=== PATIENT | female | born 1930 | race Caucasian/White ===

== ENCOUNTER 2018-03-13 09:15 | Inpatient (IN) ==
[2018-03-09 15:33] LABS: Appearance,Urine CLOUDY; Bacteria,Urine FEW /hpf (0); Bilirubin,Urine NEG (NEG); Color,Urine YELLOW; Glucose,Urine (UA) NEGATIVE (NEG); Leukocyte Esterase,Urine 500 /uL (NEG); Mucus,Urine FEW /hpf (0); Protein,Urine NEG (NEG); Specific Gravity,Urine 1.021 (1.000-1.035); Urine Blood 0.03 mg/dL (<0.03); Urine Hyaline Cast 8 /lpf (0-2); Urine RBC 6 /hpf (0-1); Urine Squamous Epithelial Cell 2 /hpf (0-4); Urine Transitional Epi Cells 3 /hpf (0-2); Urine WBC > 182 /hpf (0-4); Urobilinogen,Urine NEG (NEG)
[2018-03-09 17:12] LABS: Basophils # (Auto) 0 K/mcL (0.0-0.3); Basophils % (Auto) 0.2 % (0.0-2.0); Eosinophils # (Auto) 0.2 K/mcL (0.0-0.7); Eosinophils % (Auto) 1.7 % (0.0-7.0); Granulocytes % (Auto) 77.6 % (38.0-78.0); Lymphocytes # (Auto) 1.6 K/mcL (1.5-4.8); Lymphocytes % (Auto) 16.3 % (15.5-49.0); Mean Cell Volume 90.2 fL (80.0-100.0); Mean Corpuscular HGB Conc 33.3 g/dL (31.0-36.0); Monocytes # (Auto) 0.4 K/mcL (0.1-0.9); Monocytes % (Auto) 4.2 % (1.0-12.0); Platelet Count 277 K/mcL (140-440)
[2018-03-09 17:14] LABS: Blood Urea Nitrogen 17 mg/dl (8-23)
[~2018-03-13 09:15] MED LIST: 0.9 % SODIUM CHLORIDE 9 ML, KETOROLAC 30 MG, ROPIVACAINE HCL/PF 49.5 ML, EPINEPHrine 0.... IJ SCH; ACETAMINOPHEN 500 MG TABLET PO SCH; CELECOXIB 200 MG CAPSULE PO SCH; PREGABALIN 75 MG CAPSULE PO SCH; ceFAZolin 1 GM VIAL IV SCH; oxyCODONE 10 MG TAB.ER.12H PO SCH
[2018-03-13] MEDS ORDERED: SODIUM CHLORIDE 0.9% IV SCH (14:00)
[2018-03-13] MEDS ORDERED: GENTAMICIN SULFATE IV SCH (14:00)
[2018-03-13] MEDS ORDERED: ONDANSETRON 4 MG/2 ML VIAL IV ONE (15:05)
[2018-03-13] MEDS ORDERED: LIDOCAINE HCL/PF 100 MG/5 ML SYRINGE IV ONE (15:05)
[2018-03-13] MEDS ORDERED: MIDAZOLAM 2 MG/2 ML VIAL IV ONE (15:05)
[2018-03-13] MEDS ORDERED: ROPIVACAINE HCL/PF 20 ML VIAL IJ ONE (15:05)
[2018-03-13] MEDS ORDERED: TRANEXAMIC ACID 1,000 MG/10 ML VIAL IV ONE ×2 (15:05→16:40)
[2018-03-13] MEDS ORDERED: GLYCOPYRROLATE 0.2 MG/ML VIAL IV ONE (15:05)
[2018-03-13] MEDS ORDERED: hydrALAZINE 20 MG/ML VIAL IV ONE (15:05)
[2018-03-13] MEDS ORDERED: PROPOFOL 200 MG/20 ML VIAL IV ONE (15:05)
[2018-03-13] MEDS ORDERED: DEXAMETHASONE 10 MG/ML VIAL IV ONE (15:05)
[2018-03-13] MEDS ORDERED: fentaNYL 100 MCG/2 ML VIAL IV ONE (15:05)
[2018-03-13] MEDS ORDERED: ONDANSETRON 4 MG/2 ML VIAL IV PRN ×2 (16:19→16:40)
[2018-03-13] MEDS ORDERED: PROMETHAZINE 25 MG/ML VIAL IV PRN (16:19)
[2018-03-13] MEDS ORDERED: MEPERIDINE 25 MG/ML SYRINGE IV PRN (16:19)
[2018-03-13] MEDS ORDERED: FLUMAZENIL 0.1 MG/ML ML IV PRN (16:19)
[2018-03-13] MEDS ORDERED: fentaNYL 100 MCG/2 ML VIAL IV PRN (16:19)
[2018-03-13] MEDS ORDERED: LACTATED RINGERS 250 ML IV PRN (16:19)
[2018-03-13] MEDS ORDERED: NALOXONE HCL 0.4 MG/ML VIAL IV PRN (16:19)
[2018-03-13] MEDS ORDERED: diphenhydrAMINE 50 MG/ML VIAL IV PRN (16:19)
[2018-03-13] MEDS ORDERED: IPRATROPIUM/ALBUTEROL 3 ML AMPUL.NEB NEB PRN (16:19)
[2018-03-13] MEDS ORDERED: GENTAMICIN SULFATE 800 MG/20 ML VIAL IR ONE (16:30)
[2018-03-13] MEDS ORDERED: LACTATED RINGERS 1,000 ML IV SCH (16:30)
[2018-03-13] MEDS ORDERED: BENZOCAINE/MENTHOL 1 LOZENGE PO PRN (16:40)
[2018-03-13] MEDS ORDERED: TEMAZEPAM 15 MG CAPSULE PO PRN (16:40)
[2018-03-13] MEDS ORDERED: oxyCODONE/APAP 5/325MG TABLET PO PRN (16:40)
[2018-03-13] MEDS ORDERED: MAGNESIUM HYDROXIDE 30 ML ORAL.SUSP PO PRN (16:40)
[2018-03-13] MEDS ORDERED: ACETAMINOPHEN 325 MG TABLET PO PRN (16:40)
[2018-03-13] MEDS ORDERED: POLYETHYLENE GLYCOL 3350 17 GM PACKET PO PRN (16:40)
[2018-03-13] MEDS ORDERED: BISACODYL 10 MG SUPP.RECT PR PRN (16:40)
[2018-03-13] MEDS ORDERED: HYDROmorphone 2 MG/ML VIAL IV PRN (16:40)
[2018-03-13] MEDS ORDERED: FLEETS ADULT ENEMA PR PRN (16:40)
[2018-03-13] MEDS ORDERED: BUMETANIDE 1 MG TABLET PO PRN (16:42)
[2018-03-13] MEDS ORDERED: morphine 15 MG TABLET PO PRN (16:42)
--- NOTE | 2018-03-13 17:38 | XRay Report ---
CLINICAL INFORMATION: Postsurgical follow-up TECHNIQUE: Portable AP and crosstable lateral right knee COMPARISON: None. FINDINGS: Status post right total knee arthroplasty. Anatomic alignment demonstrated. There is postsurgical soft tissue and intra-articular gas IMPRESSION: Status post right total knee arthroplasty Interpreted and Authenticated by: Tavon Zhong 03/13/18
[2018-03-13] MEDS: 0.45 % SODIUM CHLORIDE 1,000 ML IV SCH (17:54)
[2018-03-13] MEDS: KETOROLAC 15 MG/ML VIAL IV SCH (17:54)
--- NOTE | 2018-03-13 18:23 | Brief Operative Note ---
Date of procedure: 03/13/18 Pre-op diagnosis: left knee djd severe Post-op diagnosis: same Procedure: left tka with markell robot Grafts/Implants: Yes Anesthesia: GETA Complications: none Surgeon: Jatin Bingham Fire Alarm Operator: Dm Kendall Estimated blood loss (cc): 50 Tourniquet Time (Minutes): 55 Specimens Removed/Pathology: none sent Condition: stable Disposition: PACU
--- NOTE | 2018-03-13 18:26 | Discharge Summary ---
Ortho Discharge - TKA - Patient Instructions Diet: Regular Diet Activity: activity as tolerated, weight bearing as tolerated Total Knee Protocol: For Total Knee: Start ROM MARIA C with stationary bike or rocking chair. Work on gaining full extension of knee. Posterior dislocation precautions provided. Hip abductor strengthening and gait training instructions provided. Apply Cryocuff as instructed. Dressing Care: May shower in 2 days - Follow Up Plan Follow Up Appointments: Dm Kendall PA-C [Physician Safety And Security Officer] - 03/27/18 2:30 pm Disposition: Home, Self-Care Prognosis: Good Rehab Potential: Good I certify that the patient requires SNF services: No Overall status at discharge: patient is progressing back to baseline - Orders For Discharge Prescriptions: Aspirin [Ecotrin] 325 mg PO BID #60 tab.ec Docusate Sodium [Colace] 100 mg PO BID #60 cap oxyCODONE/APAP [Percocet 5-325 mg] 1 - 2 tab PO Q4HP PRN #75 tab PRN Reason: Pain Level 3-6
[2018-03-13] MEDS ORDERED: SENNOSIDES 1 TABLET PO SCH (21:00)
[2018-03-13] MEDS: DOCUSATE SODIUM 100 MG CAPSULE PO SCH (21:42)
[2018-03-13] MEDS: ceFAZolin 1 GM VIAL IV SCH (21:42)
[2018-03-13] MEDS: ASPIRIN 325 MG ENTERIC COATED TABLET PO SCH (21:42)
[2018-03-14] MEDS: KETOROLAC 15 MG/ML VIAL IV SCH ×3 (00:24→12:04)
[2018-03-14] MEDS: 0.9 % SODIUM CHLORIDE 10 ML SYRINGE IV SCH ×2 (00:26→05:59)
[2018-03-14] MEDS ORDERED: HYDROcodone/APAP 10/325MG TABLET PO PRN (01:57)
[2018-03-14] MEDS: 0.45 % SODIUM CHLORIDE 1,000 ML IV SCH (05:02)
[2018-03-14] MEDS: ceFAZolin 1 GM VIAL IV SCH (05:59)
--- NOTE | 2018-03-14 07:36 | Orthopedic Progress Note ---
Subjective Patient information: Note initiated : 03/14/18 at 7:35 am Service Date, if different from initiated Date: [] Patient: Radha Lutz 87 y/o F admitted on 03/13/18 for Right Robotic Total Knee Arthorplasty. Chief Complaint: [Pt is stable this morning on post operative day 1 without any significant concerns or complaints. Patients vital signs have remained stable. Patients dressing is dry and is grossly intact from a neurovascular and motor standpoint. Patients 10 point ROS is otherwise negative. ] Objective Vital signs: Vital Signs Temp Pulse Resp BP Pulse Ox 03/14/18 04:00 97.6 F 68 14 126/64 91 03/14/18 02:31 94 03/14/18 00:37 98.4 F 68 16 150/74 94 03/13/18 21:10 94 03/13/18 20:50 97.7 F 65 12 98/55 89 L 03/13/18 20:00 93 03/13/18 19:50 84 127/82 95 03/13/18 19:19 75 103/56 88 L 03/13/18 18:50 89 119/65 87 L 03/13/18 18:34 90 119/62 96 03/13/18 18:19 81 132/67 92 03/13/18 18:05 93 H 124/70 94 03/13/18 17:50 93 H 142/64 94 03/13/18 17:30 97.3 F 89 13 137/110 98 03/13/18 17:15 97.4 F 90 18 138/60 100 03/13/18 17:10 87 14 161/82 100 03/13/18 17:05 84 15 144/55 100 03/13/18 17:00 97.2 F 91 H 13 140/65 100 03/13/18 09:40 96 F L 18 174/83 97 Intake and Output 03/13/18 03/14/18 03/14/18 21:59 05:59 13:59 Intake Total 1040 / 1040 1750 / 1750 Output Total 50 / 50 300 / 300 Balance 990 / 990 1450 / 1450 Intake: IV 600 / 600 1000 / 1000 Sodium Chloride 0.45% 1,000 ml 1000 / 1000 @ 100 mls/hr IV .Q10H [facility] Rx#: [id number] Lactated Ringers 1,000 ml @ 20 600 / 600 mls/hr IV .Q24H [facility] Rx#: [id number] Oral 440 / 440 750 / 750 Output: Void Amount 300 / 300 Estimated Blood Loss 50 / 50 Other: Meal Nourishment/Supplement Nourishment/Supplement Percent of Meal Consumed 100% 100% Feeding Ability Independent Independent Urine Color Bright Yellow Urine Odor Normal # Voids 1 Weight 240 lb Intake & Output: Intake & Output 03/13/18 03/14/18 03/14/18 21:59 05:59 13:59 Intake Total 1040 / 1040 1750 / 1750 Output Total 50 / 50 300 / 300 Balance 990 / 990 1450 / 1450 Weight 240 lb Intake: IV 600 / 600 1000 / 1000 Sodium Chloride 0.45% 1,000 ml 1000 / 1000 @ 100 mls/hr IV .Q10H [facility] Rx#: [id number] Lactated Ringers 1,000 ml @ 20 600 / 600 mls/hr IV .Q24H [facility] Rx#: [id number] Oral 440 / 440 750 / 750 Output: Void Amount 300 / 300 Estimated Blood Loss 50 / 50 Other: Meal Nourishment/Supplement Nourishment/Supplement Percent of Meal Consumed 100% 100% Feeding Ability Independent Independent Urine Color Bright Yellow Urine Odor Normal # Voids 1 Incision: Yes healing Incision clean and dry: Yes Dressing: Yes clean Weight bearing status: full Neurological exam IM: Yes motor sensory intact, Yes neurovascular intact Extremities exam IM: Yes Foot pink and warm, Yes neurovascular intact - Labs CBC & BMP: 03/14/18 05:46 03/09/18 14:07 Labs: Orthopedic Labs 03/09/18 14:07 PT 13.4 INR 1.0 APTT 34 03/14/18 03/09/18 05:46 14:07 Hgb 13.5 Hct 35.7 L 40.6 Assessment and Plan (1) Hx of total knee arthroplasty The patient has been educated regarding dressing care, Physical Therapy recommendations, home exercises, restrictions, and follow up appointments. The patient has had all necessary DME prescribed. The patient has remained relatively stable during their hospital course. Leave Dermabond patch intact until followup Status: Acute
--- NOTE | 2018-03-14 07:59 | Operative Note ---
DATE OF OPERATION: 03/13/2018 PREOPERATIVE DIAGNOSIS: Right knee degenerative arthritis, severe. POSTOPERATIVE DIAGNOSIS: Right knee degenerative arthritis, severe. PROCEDURE: Robotic right total knee arthroplasty with cemented components from [employer]. SURGEON: Jatin Bingham MD DEICER REPAIRER: Dm Kendall PA-C ANESTHESIA: General LMA anesthesia. COMPLICATIONS: None. DESCRIPTION OF PROCEDURE: The patient was brought to the operating room and put to sleep with general LMA anesthesia. Once asleep, the patient had the right leg sterilely prepped and draped in the usual sterile fashion. Once sterilely prepped and draped, we confirmed the operative site. Ioban was placed over the skin. A midline incision was made. A mid vastus approach was performed. Pins above and below the knee were placed, center of hip rotations, medial and lateral malleolus, intra-articular pins were placed. We registered 30 points on the femur and the tibia. Once this was done, we then balanced the knee at 90 and 15 degrees. We then used the implant, brought the implant and then this was positioned. The robot was registered and then we made our bony cuts on the tibia and the femur. Bony fragments were removed. We set rotation with the robot and then trialed the components on the femur. The 11 mm poly was the most conforming and fit very nicely. Full extension achieved. We irrigated thoroughly and prepared the patella. It measured 26 mm in total thickness, cut to 16 mm and then cemented into place a 36 mm patellar button. Lateral chamfer was made. We irrigated thoroughly and then trialed the knee. We then felt this was very stable. There was excellent tracking of the patella. We irrigated thoroughly and then punched into placed the components. We cemented the components. We used pulse lavage and CarboJet to prepare the bony surfaces. The cement was applied to the bone and the implant and these were tapped into place. Excess of bone and cement was removed. We then placed an 11 mm poly. The knee was kept in extension while we prepared the patella. A 36 mm patellar button was cemented into place and we kept the knee at 45 degrees until all components were dry. This tourniquet was deflated. We irrigated thoroughly. We then closed the mid vastus approach with #1 Stratafix stitches x3. We closed the skin with Stratafix and adhesive closure. The portals were closed with 4-0 nylon. The intraarticular pins were removed and accounted for and all external pins were removed. The patient tolerated this well. There were no complications. The alignment was 9 degree flexion contracture with approximately 45 degrees of varus malalignment. We achieved 0 degrees extension and approximately 1 degree of varus. The patient tolerated this well without complication. RBH:thom Job ID: [id number] Doc ID: [id number] Jatin Bingham MD
[2018-03-14] MEDS: DOCUSATE SODIUM 100 MG CAPSULE PO SCH (08:31)
[2018-03-14] MEDS: ASPIRIN 325 MG ENTERIC COATED TABLET PO SCH (08:31)
--- NOTE | 2018-03-14 08:48 | Operative Note ---
DATE OF OPERATION: 03/13/2018 PREOPERATIVE DIAGNOSIS: Right knee degenerative arthritis. POSTOPERATIVE DIAGNOSIS: Right knee degenerative arthritis. PROCEDURE: Right total knee arthroplasty with the Jacky robot. SURGEON: Jatin Bingham M.D. SUGAR REFINER: Dm Kednall PA-C. ANESTHESIA: General anesthesia. COMPLICATIONS: None. TOTAL TOURNIQUET TIME: Approximately 55 minutes. DESCRIPTION OF PROCEDURE: The patient had the right knee sterilely prepped and draped in the usual sterile fashion. Once this was confirmed as the operative site, we inflated the tourniquet to 250 pounds of pressure and placed a midline incision on the right knee. This was confirmed both by x-ray, consent form and initials. Once done, we then made a midline incision, midvastus approach performed, and then we placed arrays in the skin above and below the knee for the robot. The right knee had the center of hip rotation confirmed, and the medial and lateral malleoli. Two intraarticular pins were placed, one on the femur, one on the tibia. Thirty points on the femur and tibia were registered. We then balanced the knee at 90 degrees and 15 degrees. We adjusted the implants to assist with the balancing of the knee. Once this was done, we brought in the Jacky robot. The bony cuts were made. We then trialed the components, which we had templated prior. They fit very nicely with a standard thickness poly. We prepared the patella, covering this with a 36 mm patellar button. The patella tracked well. It seemed to fit very nicely throughout the range of motion. We irrigated thoroughly and then cemented into place the tibial baseplate and the femoral component, removing excess cement, with a standard poly. Once this was done, we then placed the knee in extension and prepared the patella. This had a 36 mm patellar button cemented into place. Once the cement was hard, we took the knee through the range of motion to confirm tracking and position. This seemed to fit very nicely. We closed the midvastus approach on the right knee with Stratafix x3 sutures. We irrigated thoroughly and closed the skin with Stratafix and 2-0 Vicryl. Adhesive closure for the skin was used and 4-0 nylon for the portals. The intraarticular pins were removed, as well as the array pins. Once all accounted for we irrigated and placed a sterile bandage. The patient tolerated this well without complication. CLINT:[email or web address] Job ID: [id number] Doc ID: [id number] Jatin Bingham MD
[2018-03-14] MEDS ORDERED: MAGNESIUM OXIDE 400 MG TABLET PO SCH (09:00)
[2018-03-14] MEDS ORDERED: CALCIUM W/VIT D3 500 MG TABLET PO SCH (09:00)
[2018-03-14] MEDS ORDERED: ASPIRIN 325 MG TABLET.DR PO SCH (09:00)
[2018-03-14] MEDS ORDERED: VITAMIN D3 1,000 UNIT TABLET PO SCH (09:00)
== END 2018-03-14 12:42 | disposition home or self-care (01) | DRG 470 ==
LOC: MEDSUR 09:15
PROVIDERS: ADMIT Orthopaedic Surgery; ATTEND Orthopaedic Surgery
CPT/HCPCS: 62322; 97161; C1713; C1776; J0360; J0690; J1100; J1580; J1885; J2001; J2250; J2405; J2795; J3010; J7050; J7120

== ENCOUNTER 2018-05-22 06:54 | Inpatient (IN) ==
[2018-05-16 12:43] LABS: Basophils # (Auto) 0 K/mcL (0.0-0.3); Basophils % (Auto) 0.4 % (0.0-2.0); Eosinophils # (Auto) 0.2 K/mcL (0.0-0.7); Eosinophils % (Auto) 3.8 % (0.0-7.0); Granulocytes % (Auto) 72.7 % (38.0-78.0); Lymphocytes # (Auto) 1.1 K/mcL (1.5-4.8); Lymphocytes % (Auto) 17.9 % (15.5-49.0); Mean Cell Volume 87.7 fL (80.0-100.0); Mean Corpuscular HGB Conc 32.1 g/dL (31.0-36.0); Monocytes # (Auto) 0.3 K/mcL (0.1-0.9); Monocytes % (Auto) 5.2 % (1.0-12.0); Platelet Count 226 K/mcL (140-440); RBC 4.24 M/mcL (4.00-5.20); Red Cell Distribution Width 15.8 % (11.5-14.5)
[2018-05-16 14:22] LABS: Blood Urea Nitrogen 16 mg/dl (8-23)
[2018-05-22] MEDS ORDERED: PREGABALIN 75 MG CAPSULE PO SCH (07:00)
[2018-05-22] MEDS ORDERED: ceFAZolin 1 GM VIAL IV SCH (07:00)
[2018-05-22] MEDS ORDERED: CELECOXIB 200 MG CAPSULE PO SCH (07:00)
[2018-05-22] MEDS ORDERED: 0.9 % SODIUM CHLORIDE 9 ML, KETOROLAC 30 MG, ROPIVACAINE HCL/PF 49.5 ML, EPINEPHrine 0.... IJ SCH (07:00)
[2018-05-22] MEDS ORDERED: ACETAMINOPHEN 500 MG TABLET PO SCH (07:00)
[2018-05-22 08:00] LABS: Appearance,Urine CLEAR; Bacteria,Urine 0 /hpf (0); Bilirubin,Urine NEG (NEG); Color,Urine STRAW; Glucose,Urine (UA) NEGATIVE (NEG); Leukocyte Esterase,Urine 25 /uL (NEG); Mucus,Urine FEW /hpf (0); Protein,Urine NEG (NEG); Specific Gravity,Urine 1.012 (1.000-1.035); Urine Blood NEG mg/dL (<0.03); Urine RBC 1 /hpf (0-1); Urine Squamous Epithelial Cell 1 /hpf (0-4); Urine WBC 11 /hpf (0-4); Urobilinogen,Urine NEG (NEG)
[2018-05-22] MEDS ORDERED: BUMETANIDE 1 MG TABLET PO PRN (09:00)
[2018-05-22] MEDS ORDERED: GLYCOPYRROLATE 0.2 MG/ML VIAL IV ONE (09:10)
[2018-05-22] MEDS ORDERED: LIDOCAINE HCL/PF 100 MG/5 ML SYRINGE IV ONE (09:10)
[2018-05-22] MEDS ORDERED: ONDANSETRON 4 MG/2 ML VIAL IV ONE (09:10)
[2018-05-22] MEDS ORDERED: TRANEXAMIC ACID 1,000 MG/10 ML VIAL IV ONE (09:10)
[2018-05-22] MEDS ORDERED: PROPOFOL 200 MG/20 ML VIAL IV ONE (09:10)
[2018-05-22] MEDS ORDERED: GENTAMICIN SULFATE 800 MG/20 ML VIAL IR ONE (09:31)
[2018-05-22] MEDS ORDERED: METHOCARBAMOL 1,000 MG/10 ML VIAL IV PRN (10:30)
[2018-05-22] MEDS ORDERED: MEPERIDINE 25 MG/ML SYRINGE IV PRN (10:30)
[2018-05-22] MEDS ORDERED: IPRATROPIUM/ALBUTEROL 3 ML AMPUL.NEB NEB PRN (10:30)
[2018-05-22] MEDS ORDERED: fentaNYL 100 MCG/2 ML VIAL IV PRN (10:30)
[2018-05-22] MEDS ORDERED: LACTATED RINGERS 1,000 ML IV SCH (10:30)
[2018-05-22] MEDS ORDERED: HYDROmorphone 2 MG/ML VIAL IV PRN (10:37)
[2018-05-22] MEDS ORDERED: BENZOCAINE/MENTHOL 1 LOZENGE PO PRN (10:37)
[2018-05-22] MEDS ORDERED: FLEETS ADULT ENEMA PR PRN (10:37)
[2018-05-22] MEDS ORDERED: BISACODYL 10 MG SUPP.RECT PR PRN (10:37)
[2018-05-22] MEDS ORDERED: ONDANSETRON 4 MG/2 ML VIAL IV PRN (10:37)
[2018-05-22] MEDS ORDERED: POLYETHYLENE GLYCOL 3350 17 GM PACKET PO PRN (10:37)
[2018-05-22] MEDS ORDERED: MAGNESIUM HYDROXIDE 30 ML ORAL.SUSP PO PRN (10:37)
[2018-05-22] MEDS ORDERED: oxyCODONE/APAP 5/325MG TABLET PO PRN (10:37)
[2018-05-22] MEDS ORDERED: TRANEXAMIC ACID 1,000 MG/10 ML VIAL IV SCH (10:37)
--- NOTE | 2018-05-22 10:37 | Brief Operative Note ---
Date of procedure: 05/22/18 Pre-op diagnosis: Right hip djd Post-op diagnosis: same Procedure: right ryder cemented stem Grafts/Implants: Yes Anesthesia: GETA Complications: none Surgeon: Jatin Bingham Airplane Cabin Attendant: Dm Kendall Estimated blood loss (cc): 150 Specimens Removed/Pathology: none sent Condition: stable Disposition: PACU
[2018-05-22] MEDS ORDERED: ACETAMINOPHEN 325 MG TABLET PO PRN (10:41)
[2018-05-22] MEDS ORDERED: morphine 15 MG TABLET PO PRN (10:41)
--- NOTE | 2018-05-22 11:21 | XRay Report ---
HISTORY: Postop right hip replacement FINDINGS: There is a well-positioned right total hip prosthesis. No fracture is present. There are spurs along the margins of the greater trochanters bilaterally. Mild arthritis is seen in the symphysis pubis. There are also spurs along the lateral borders of the iliac crests. Laminectomy has been performed at L5 and there is a strut in the L4-5 disc space. Horizontally oriented row of surgical sutures are present in the midline of the pelvis. IMPRESSION: Well-positioned right hip prosthesis Interpreted and Authenticated by: Renato Grant 05/22/18
[2018-05-22] MEDS: 0.45 % SODIUM CHLORIDE 1,000 ML IV SCH ×2 (11:45→22:08)
--- NOTE | 2018-05-22 11:53 | Operative Note ---
DATE OF OPERATION: 05/22/2018 PREOPERATIVE DIAGNOSIS: Right hip degenerative arthritis. POSTOPERATIVE DIAGNOSIS: Right hip degenerative arthritis. PROCEDURE: Right total hip arthroplasty with [place] components with a cemented stem, 54 cup and a hooded liner with a 36 mm ceramic head with a +5 neck length. The stem was a size 6 with a distal centralizer of 10. SURGEON: Jatin Bingham M.D. GREEN CHAIN OPERATOR: Dm Kendall PA-C. ANESTHESIA: General LMA anesthesia by Corey Aguilera M.D. COMPLICATIONS: None. DESCRIPTION OF PROCEDURE: The patient was brought to the operating room and put to sleep with general LMA anesthesia. Once asleep, the patient had the right hip sterilely prepped and draped in the usual sterile fashion in a left lateral position. Once done, we confirmed the operative site, and Ioban was placed over the skin. We made a superior approach to the hip, keeping the muscle intact. Charnley retractor placed and then we subluxed the hip superiorly. We made our neck cut at 30 mm from the center of hip rotation and then removed the ball. We then reamed up on the acetabulum to the size of 54, implanted a 54 cup with a 30 mm screw with excellent purchase. A hooded liner with a 10 degree inferior posterior hooded liner was placed. We irrigated thoroughly and then we secured the cup and removed any spurs and we removed the labrum. Once done, we then prepared the femoral side. This was broached up to the size 6. This was trialed and x-rayed in the operative suite. This showed almost equal leg lengths with a standard poly. We then tested the hip after the x-ray to make sure that it was stable. It subluxed partly because of her weight and her size at about 60 to 70 degrees. We trialed the 2.5 and then a 5 mm. The 5 mm was very stable. For this reason, we lengthened the leg slightly knowing that this was for stability. We irrigated thoroughly and cemented into place a size 6 stem, setting anatomic rotation of the femoral neck with the stem at 15 degrees of anteversion. We then cemented into place the stem. Once secure, we placed a +5 neck length ceramic head. We irrigated thoroughly and then reduced the hip. It was very stable throughout the range of motion and then we repaired the capsule with #1 Ethibond stitch. The fascial layer was closed with #1 Stratafix layer. We irrigated thoroughly and closed the fat layer with Stratafix and the skin with adhesive closure. The patient tolerated this well without complication. RBH:shaun Job ID: [id number] Doc ID: [id number] Jatin Bingham MD
[2018-05-22] MEDS: ceFAZolin 1 GM VIAL IV SCH (17:11)
[2018-05-22] MEDS: 0.9 % SODIUM CHLORIDE 10 ML SYRINGE IV SCH ×2 (17:12→22:19)
[2018-05-22] MEDS: SENNOSIDES 1 TABLET PO SCH (20:33)
[2018-05-22] MEDS: ASPIRIN 325 MG ENTERIC COATED TABLET PO SCH (20:34)
[2018-05-22] MEDS: morphine 15 MG TABLET PO PRN (20:34)
[2018-05-22] MEDS: DOCUSATE SODIUM 100 MG CAPSULE PO SCH (20:34)
[2018-05-22] MEDS: TEMAZEPAM 15 MG CAPSULE PO PRN (22:13)
[2018-05-22] MEDS: KETOROLAC 15 MG/ML VIAL IV PRN (22:13)
[2018-05-23] MEDS: 0.9 % SODIUM CHLORIDE 10 ML SYRINGE IV SCH ×4 (01:04→21:28)
[2018-05-23] MEDS: ceFAZolin 1 GM VIAL IV SCH (01:04)
--- NOTE | 2018-05-23 07:34 | Orthopedic Progress Note ---
Subjective Patient information: Note initiated : 05/23/18 at 7:33 am Service Date, if different from initiated Date: [] Patient: Radha Lutz 88 y/o F admitted on 05/22/18 for Right Total Hip Arthroplasty. Chief Complaint: [Pt is stable this morning on post operative day 1 without any significant concerns or complaints. Patients vital signs have remained stable. Patients dressing is dry and is grossly intact from a neurovascular and motor standpoint. Patients 10 point ROS is otherwise negative. ] Objective Vital signs: Vital Signs Temp Pulse Resp BP BP Pulse Ox 05/23/18 02:24 98.8 F 73 14 135/54 93 05/22/18 23:00 98.7 F 70 14 127/65 93 05/22/18 19:27 98.2 F 66 14 115/69 95 05/22/18 18:00 94 05/22/18 16:00 94 05/22/18 15:33 97.4 F 85 18 144/63 94 05/22/18 14:00 93 05/22/18 13:53 61 119/76 97 05/22/18 13:19 53 L 146/69 94 05/22/18 13:04 55 L 149/66 94 05/22/18 12:50 63 127/68 90 05/22/18 12:37 99 05/22/18 12:34 61 165/73 97 05/22/18 12:19 68 146/73 96 05/22/18 12:04 62 150/75 99 05/22/18 11:49 61 148/70 99 05/22/18 11:35 63 166/69 99 05/22/18 11:22 97.2 F 64 14 97/47 98 05/22/18 11:08 97.8 F 71 14 122/70 95 05/22/18 11:03 71 14 107/90 99 05/22/18 10:58 74 14 133/54 98 05/22/18 10:53 97.2 F 68 14 118/59 99 05/22/18 07:42 97.8 F 62 16 187/79 96 Intake and Output 05/22/18 05/23/18 05/23/18 21:59 05:59 13:59 Intake Total 600 1400 Output Total 650 425 Balance -50 975 Intake: IV 1000 Sodium Chloride 0.45% 1,000 ml 1000 @ 100 mls/hr IV .Q10H [facility] Rx#: [id number] Oral 600 400 Output: Urine Catheter Amount 650 Straight 650 Void Amount 425 Other: Meal Dinner Cheese stiks (2) Percent of Meal Consumed 100% 100% Feeding Ability Independent Independent Urine Appearance Clear Urine Color Straw Straight Dark Yellow Urine Odor Normal Weight 244 lb 8 oz Intake & Output: Intake & Output 05/22/18 05/23/18 05/23/18 21:59 05:59 13:59 Intake Total 600 1400 Output Total 650 425 Balance -50 975 Weight 244 lb 8 oz Intake: IV 1000 Sodium Chloride 0.45% 1,000 ml 1000 @ 100 mls/hr IV .Q10H [facility] Rx#: [id number] Oral 600 400 Output: Urine Catheter Amount 650 Straight 650 Void Amount 425 Other: Meal Dinner Cheese stiks (2) Percent of Meal Consumed 100% 100% Feeding Ability Independent Independent Urine Appearance Clear Urine Color Straw Straight Dark Yellow Urine Odor Normal Incision: Yes healing Incision clean and dry: Yes Dressing: Yes clean Neurological exam IM: Yes motor sensory intact, Yes neurovascular intact Extremities exam IM: Yes Foot pink and warm, Yes neurovascular intact - Labs CBC & BMP: 05/23/18 04:13 05/16/18 10:50 Labs: Orthopedic Labs 05/16/18 10:51 PT 14.5 INR 1.1 APTT 34 05/23/18 05/16/18 04:13 10:51 Hgb 11.9 L Hct 32.0 L 37.2 Assessment and Plan (1) Hx of total hip arthroplasty The patient has been educated regarding dressing care, Physical Therapy recomme ndations, home exercises, restrictions, and follow up appointments. The patient has had all necessary DME prescribed. The patient has remained relatively stable during their hospital course. Leave Dermabond patch intact until followup Status: Acute
--- NOTE | 2018-05-23 07:36 | Discharge Summary ---
Ortho Discharge - KRISTI - Patient Instructions Diet: Regular Diet Activity: activity as tolerated, weight bearing as tolerated Total Hip Protocol: Follow activity instructions as provided by Physical Therapy. Dressing Care: May shower in 2 days - Problem Maintenance (1) Hx of total hip arthroplasty Status: Acute - Follow Up Plan Follow Up Appointments: Dm Kendall PA-C [Physician Busboy] - 06/06/18 11:20 am Disposition: Home, Self-Care Prognosis: Good Rehab Potential: Good I certify that the patient requires SNF services: No Overall status at discharge: patient is progressing back to baseline - Orders For Discharge Prescriptions: Aspirin [Ecotrin] 325 mg PO BID #60 tab.ec Docusate Sodium [Colace] 100 mg PO BID #60 capsule morphine 15 mg PO Q6HP PRN #30 tab PRN Reason: Pain Level 3-6
[2018-05-23] MEDS ORDERED: POLYETHYLENE GLYCOL 3350 17 GM PACKET PO SCH (09:00)
[2018-05-23] MEDS ORDERED: ASPIRIN 325 MG TABLET.DR PO SCH (09:00)
[2018-05-23] MEDS: ACETAMINOPHEN 325 MG TABLET PO PRN ×2 (11:22→18:02)
[2018-05-23] MEDS: morphine 15 MG TABLET PO PRN ×2 (11:23→18:01)
[2018-05-23] MEDS: ASPIRIN 325 MG ENTERIC COATED TABLET PO SCH ×2 (11:24→20:48)
[2018-05-23] MEDS: DOCUSATE SODIUM 100 MG CAPSULE PO SCH ×2 (11:24→20:48)
[2018-05-23] MEDS: KETOROLAC 15 MG/ML VIAL IV PRN (20:48)
[2018-05-23] MEDS: SENNOSIDES 1 TABLET PO SCH (20:48)
[2018-05-23] MEDS: TEMAZEPAM 15 MG CAPSULE PO PRN (20:48)
[2018-05-24] MEDS: morphine 15 MG TABLET PO PRN ×3 (01:01→16:48)
[2018-05-24] MEDS: KETOROLAC 15 MG/ML VIAL IV PRN (06:54)
[2018-05-24] MEDS: 0.9 % SODIUM CHLORIDE 10 ML SYRINGE IV SCH ×3 (06:55→20:30)
--- NOTE | 2018-05-24 07:07 | Orthopedic Progress Note ---
Subjective Patient information: Note initiated : 05/24/18 at 7:05 am Service Date, if different from initiated Date: [] Patient: Radha Lutz 88 y/o F admitted on 05/22/18 for Right Total Hip Arthroplasty. Chief Complaint: [limited walking and pain is stopping her walking les than 20 feet] Objective Vital signs: Vital Signs Temp Pulse Resp BP Pulse Ox 05/24/18 03:18 97.9 F 66 20 141/59 95 05/23/18 23:39 98.3 F 65 20 124/57 95 05/23/18 18:59 98.9 F 67 20 132/59 94 05/23/18 16:15 99.4 F H 68 22 140/70 05/23/18 12:00 98.9 F 69 20 132/57 96 05/23/18 07:53 96.4 F L 63 14 106/50 94 Intake and Output 05/23/18 05/24/18 05/24/18 21:59 05:59 13:59 Intake Total 360 350 Output Total 600 400 Balance -240 -50 Intake: Oral 360 350 Output: Void Amount 600 400 Other: Meal Dinner Percent of Meal Consumed 100% Urine Appearance Clear Clear Urine Color Bright Yellow Straw Urine Odor Normal Normal Weight 245 lb Intake & Output: Intake & Output 05/23/18 05/24/18 05/24/18 21:59 05:59 13:59 Intake Total 360 350 Output Total 600 400 Balance -240 -50 Weight 245 lb Intake: Oral 360 350 Output: Void Amount 600 400 Other: Meal Dinner Percent of Meal Consumed 100% Urine Appearance Clear Clear Urine Color Bright Yellow Straw Urine Odor Normal Normal Incision: Yes healing Incision clean and dry: Yes Weight bearing status: full Neurological exam IM: Yes oriented X3, Yes neurovascular intact Extremities exam IM: Yes Foot pink and warm, Yes neurovascular intact - Periperhal Pulses Peripheral pulses: 1+: dorsalis pedis (L), dorsalis pedis (R) - Labs CBC & BMP: 05/23/18 04:13 05/16/18 10:50 Labs: Orthopedic Labs 05/16/18 10:51 PT 14.5 INR 1.1 APTT 34 05/23/18 05/16/18 04:13 10:51 Hgb 11.9 L Hct 32.0 L 37.2
[2018-05-24] MEDS: DOCUSATE SODIUM 100 MG CAPSULE PO SCH ×2 (08:13→20:29)
[2018-05-24] MEDS: ASPIRIN 325 MG ENTERIC COATED TABLET PO SCH ×2 (08:13→20:29)
[2018-05-24] MEDS: SENNOSIDES 1 TABLET PO SCH (20:29)
[2018-05-25] MEDS: morphine 15 MG TABLET PO PRN ×2 (07:25→10:57)
[2018-05-25] MEDS: DOCUSATE SODIUM 100 MG CAPSULE PO SCH (07:25)
[2018-05-25] MEDS: 0.9 % SODIUM CHLORIDE 10 ML SYRINGE IV SCH (07:25)
[2018-05-25] MEDS: ASPIRIN 325 MG ENTERIC COATED TABLET PO SCH (07:25)
== END 2018-05-25 11:10 | disposition home or self-care (01) | DRG 470 ==
LOC: MEDSUR 06:54
PROVIDERS: ADMIT Orthopaedic Surgery; ATTEND Orthopaedic Surgery

== ENCOUNTER 2019-03-05 10:54 | Inpatient (IN) ==
[2019-03-01 16:36] LABS: Appearance,Urine CLEAR; Bacteria,Urine 0 /hpf (0); Bilirubin,Urine NEG (NEG); Color,Urine YELLOW; Culture Indicated,Urine YES; Glucose,Urine (UA) NEGATIVE (NEG); Ketones,Urine NEG (NEG); Leukocyte Esterase,Urine 250 /uL (NEG); Mucus,Urine FEW /hpf (0); Nitrate,Urine NEG (NEG); Protein,Urine NEG (NEG); Urine Blood NEG mg/dL (<0.03); Urine RBC 2 /hpf (0-1); Urine Squamous Epithelial Cell 1 /hpf (0-4); Urine Transitional Epi Cells 1 /hpf (0-2); Urine WBC 85 /hpf (0-4); Urobilinogen,Urine NEG (NEG)
[2019-03-01 20:57] LABS: Basophils # (Auto) 0 K/mcL (0.0-0.3); Basophils % (Auto) 0.3 % (0.0-2.0); Eosinophils # (Auto) 0.2 K/mcL (0.0-0.7); Eosinophils % (Auto) 3.1 % (0.0-7.0); Granulocytes % (Auto) 79.2 % (38.0-78.0); Hematocrit 41.5 % (36.0-48.0); Hemoglobin 13.6 g/dL (12.0-15.0); Lymphocytes # (Auto) 0.8 K/mcL (1.5-4.8); Lymphocytes % (Auto) 12.9 % (15.5-49.0); Mean Cell Volume 94.4 fL (80.0-100.0); Mean Corpuscular HGB Conc 32.9 g/dL (31.0-36.0); Mean Platelet Volume 8.1 fL (7.4-10.4); Monocytes # (Auto) 0.3 K/mcL (0.1-0.9); Monocytes % (Auto) 4.5 % (1.0-12.0); Platelet Count 220 K/mcL (140-440); Red Cell Distribution Width 15.1 % (11.5-14.5); WBC 6.6 K/mcL (4.5-11.0)
[2019-03-01 21:03] LABS: Blood Urea Nitrogen 11 mg/dl (8-23); Calcium 9.5 mg/dl (8.6-10.4); Carbon Dioxide 30 mmol/L (22-30); Chloride 105 mmol/L (96-108); Glomerular Filtration Rate 51; Glucose 114 mg/dL (70-105)
[~2019-03-05 10:54] MED LIST changes: -0.9 % SODIUM CHLORIDE 9 ML, KETOROLAC 30 MG, ROPIVACAINE HCL/PF 49.5 ML, EPINEPHrine 0.... IJ SCH; +IPRATROPIUM/ALBUTEROL 3 ML AMPUL.NEB NEB PRN; +SCOPOLAMINE 1 PATCH PATCH TOPICAL PRN; +VANCOMYCIN 1,500 MG in 0.9 % SODIUM CHLORIDE 500 ML IV SCH; -ceFAZolin 1 GM VIAL IV SCH; +ceFAZolin 2 GM in DEXTROSE 5% IN WATER 50 ML IV SCH; -oxyCODONE 10 MG TAB.ER.12H PO SCH
[2019-03-05] MEDS ORDERED: LIDOCAINE HCL/PF 100 MG/5 ML SYRINGE IV ONE (15:10)
[2019-03-05] MEDS ORDERED: SUCCINYLCHOLINE 20 MG/ML ML IV ONE (15:10)
[2019-03-05] MEDS ORDERED: KETAMINE 100 MG/ML ML IV ONE (15:10)
[2019-03-05] MEDS ORDERED: ROPIVACAINE HCL/PF 30 ML VIAL IJ ONE (15:10)
[2019-03-05] MEDS ORDERED: DEXAMETHASONE 10 MG/ML VIAL IV ONE (15:10)
[2019-03-05] MEDS ORDERED: ONDANSETRON 4 MG/2 ML VIAL IV ONE (15:10)
[2019-03-05] MEDS ORDERED: ePHEDrine 50 MG/ML AMPUL IV ONE (15:10)
[2019-03-05] MEDS ORDERED: PROPOFOL 200 MG/20 ML VIAL IV ONE (15:10)
[2019-03-05] MEDS ORDERED: TRANEXAMIC ACID 1,000 MG/10 ML VIAL IV ONE (15:10)
[2019-03-05] MEDS ORDERED: fentaNYL 250 MCG/5 ML VIAL IV ONE (15:10)
[2019-03-05] MEDS ORDERED: GLYCOPYRROLATE 0.2 MG/ML VIAL IV ONE (15:10)
[2019-03-05] MEDS ORDERED: IPRATROPIUM/ALBUTEROL 3 ML AMPUL.NEB NEB PRN (15:55)
[2019-03-05] MEDS ORDERED: HYDROmorphone 2 MG/ML VIAL IV PRN ×2 (15:55→16:23)
[2019-03-05] MEDS ORDERED: diphenhydrAMINE 50 MG/ML VIAL IV PRN (15:55)
[2019-03-05] MEDS ORDERED: PROMETHAZINE 25 MG/ML VIAL IV PRN (15:55)
[2019-03-05] MEDS ORDERED: METHOCARBAMOL 1,000 MG/10 ML VIAL IV PRN (15:55)
[2019-03-05] MEDS ORDERED: NALOXONE HCL 0.4 MG/ML VIAL IV PRN (15:55)
[2019-03-05] MEDS ORDERED: ONDANSETRON 4 MG/2 ML VIAL IV PRN ×2 (15:55→16:23)
[2019-03-05] MEDS ORDERED: fentaNYL 100 MCG/2 ML VIAL IV PRN (15:55)
[2019-03-05] MEDS ORDERED: ePHEDrine 50 MG/ML AMPUL IV PRN (15:55)
[2019-03-05] MEDS ORDERED: MEPERIDINE 25 MG/ML SYRINGE IV PRN (15:55)
[2019-03-05] MEDS ORDERED: FLUMAZENIL 0.1 MG/ML ML IV PRN (15:55)
[2019-03-05] MEDS ORDERED: ATROPINE SULFATE 0.4 MG/ML VIAL IV PRN (15:55)
[2019-03-05] MEDS ORDERED: METOPROLOL TARTRATE 5 MG/5 ML VIAL IV PRN (15:55)
[2019-03-05] MEDS ORDERED: LACTATED RINGERS 1,000 ML IV SCH (16:00)
--- NOTE | 2019-03-05 16:22 | Brief Operative Note ---
Date of procedure: 03/05/19 Pre-op diagnosis: Right shoulder severe djd Post-op diagnosis: same Procedure: Right reverse tsa and bicep tenodesis Grafts/Implants: Yes Anesthesia: VELVET Surgeon: Jatin Bingham Tractor Expert: Dm Kendall Estimated blood loss (cc): 150 Specimens Removed/Pathology: none sent Condition: stable Disposition: PACU
[2019-03-05] MEDS ORDERED: FLEETS ADULT ENEMA PR PRN (16:23)
[2019-03-05] MEDS ORDERED: KETOROLAC 15 MG/ML VIAL IV PRN (16:23)
[2019-03-05] MEDS ORDERED: BISACODYL 10 MG SUPP.RECT PR PRN (16:23)
[2019-03-05] MEDS ORDERED: MAGNESIUM HYDROXIDE 30 ML ORAL.SUSP PO PRN (16:23)
[2019-03-05] MEDS ORDERED: TRANEXAMIC ACID 1,000 MG/10 ML VIAL IV SCH (16:23)
[2019-03-05] MEDS ORDERED: BENZOCAINE/MENTHOL 1 LOZENGE PO PRN (16:23)
[2019-03-05] MEDS ORDERED: POLYETHYLENE GLYCOL 3350 17 GM PACKET PO PRN (16:23)
[2019-03-05] MEDS ORDERED: ACETAMINOPHEN 325 MG TABLET PO PRN (16:23)
[2019-03-05] MEDS ORDERED: morphine 15 MG TABLET PO PRN (16:25)
--- NOTE | 2019-03-05 16:44 | Operative Note ---
DATE OF OPERATION: 03/05/2019 PREOPERATIVE DIAGNOSES: Right shoulder rotator cuff arthropathy, severe arthritis, and biceps tendinopathy. POSTOPERATIVE DIAGNOSES: Right shoulder rotator cuff arthropathy, severe arthritis, and biceps tendinopathy. PROCEDURE: Right reverse total shoulder and biceps tenodesis. SURGEON: Jatin Bingham M.D. MILITARY ADMINISTRATIVE TECHNICIAN: Dm Kendall PA-C. The PA's assistance was required for the safe and efficient completion of the entire case. This provider's expertise and technical skill were required throughout the case. The PA assisted with preoperative coordination, intraoperative retraction, wound closure, dressing and splint application, as well as postoperative documentation and care coordination. ANESTHESIA: General LMA anesthesia. COMPLICATIONS: None. DESCRIPTION OF PROCEDURE: The patient was brought to the operating room and put to sleep with general LMA anesthesia. Once asleep, the patient had the right shoulder sterilely prepped and draped in a beach chair position. Once we confirmed the operative site by timeout, we then proceeded with the case. Preop antibiotics and tranexamic acid had been given. We made a deltopectoral approach to the shoulder, taking the cephalic vein laterally with a Meek retractor. Once this was accomplished, we then retracted the shoulder and the conjoined tendon medially. We released the subscap and the biceps tendon. The biceps tendon was then attached to the pec major and to the bone with #2 FiberWire. Once this was done, we finished releasing the subscap. This was retracted medially and then we dislocated the humeral head. Once dislocated, we then used the guide to make our cut at the anatomic neck region. The bony fragment was removed. On inspection, it showed most of the rotator cuff, the supraspinatus and infraspinatus to be torn, and the teres minor to still be working. Once this was noted, we then prepared the glenoid side. We released the remnants of the biceps tendon and the labrum and inferiorly the capsule was released 360 degrees around the glenoid. Once done, we then placed the pin centrally and then reamed up to the size of 40. We placed the metaglene and a central screw measuring 32 mm and then the peripheral screws measuring 28 mm, 24 mm and 24 mm were locked into place. A 36 mm glenosphere with 2 mm of offset and 2 mm of eccentricity was then implanted. We then prepared the humeral side. The humeral side was broached up to the size 11. We trialed an 11 with a standard poly. This fit very nicely. We then placed a cementless humeral component size 11 with a small amount of cement distally because of the poor quality of bone. A standard-thickness polyethylene was used. This was reduced without difficulty. We irrigated thoroughly and then closed the deltopectoral interval with #2 Vicryl. Skin was closed with 2-0 Vicryl and adhesive closure. The patient tolerated this well without complication. CLINT:[email or web address] Job ID: [id number] Doc ID: [id number] Jatin Bingham MD
[2019-03-05] MEDS ORDERED: GENTAMICIN SULFATE 800 MG/20 ML VIAL IR ONE (16:46)
--- NOTE | 2019-03-05 17:39 | XRay Report ---
CLINICAL INFORMATION: Postsurgical follow-up TECHNIQUE: Portable AP and Y views of the right shoulder COMPARISON: None. FINDINGS: Status post reverse right shoulder arthroplasty. Alignment is anatomic. IMPRESSION: Reverse right shoulder arthroplasty Interpreted and Authenticated by: Tavon Zhong 03/05/19
[2019-03-05] MEDS: LACTATED RINGERS 1,000 ML IV SCH ×2 (18:00→22:11)
[2019-03-05] MEDS ORDERED: DOCUSATE SODIUM 100 MG CAPSULE PO SCH ×2 (21:00)
[2019-03-05] MEDS ORDERED: POLYETHYLENE GLYCOL 3350 17 GM PACKET PO SCH (21:00)
[2019-03-05] MEDS ORDERED: TEMAZEPAM 15 MG CAPSULE PO PRN (21:00)
[2019-03-05] MEDS ORDERED: SENNOSIDES 1 TABLET PO SCH (21:00)
[2019-03-05] MEDS: 0.9 % SODIUM CHLORIDE 10 ML SYRINGE IV SCH (22:12)
[2019-03-05] MEDS: ceFAZolin 1 GM VIAL IV SCH (22:44)
[2019-03-06] MEDS: LACTATED RINGERS 1,000 ML IV SCH (02:30)
[2019-03-06] MEDS: HYDROCODONE/APAP 7.5/325MG TABLET PO PRN ×2 (03:44→11:53)
[2019-03-06] MEDS: ceFAZolin 1 GM VIAL IV SCH (05:52)
[2019-03-06] MEDS: 0.9 % SODIUM CHLORIDE 10 ML SYRINGE IV SCH (05:52)
--- NOTE | 2019-03-06 07:40 | Orthopedic Progress Note ---
Subjective Patient information: Note initiated : 03/06/19 at 7:39 am Service Date, if different from initiated Date: [] Patient: Radha Lutz 88 y/o F admitted on 03/05/19 for Right Reverse Total Shoulder Arthroplasty. Chief Complaint: [Pt is stable this morning on post operative day 1 without any significant concerns or complaints. Patients vital signs have remained stable. Patients dressing is dry and is grossly intact from a neurovascular and motor standpoint. Patients 10 point ROS is otherwise negative. ] Objective Vital signs: Vital Signs Temp Pulse Resp BP Pulse Ox 03/06/19 07:37 97.9 F 70 18 142/68 96 03/06/19 05:55 67 93 03/06/19 04:50 62 90 03/06/19 03:42 97.9 F 78 16 160/82 95 03/05/19 23:07 97.5 F 79 16 160/81 97 03/05/19 21:13 80 154/78 96 03/05/19 19:13 91 H 136/118 92 03/05/19 19:12 139/71 03/05/19 18:59 89 155/65 94 03/05/19 18:29 90 166/73 95 03/05/19 18:14 81 172/76 93 03/05/19 17:28 97.6 F 84 12 167/98 93 03/05/19 17:13 97.9 F 85 13 161/98 95 03/05/19 16:58 97.9 F 83 14 173/93 99 03/05/19 16:53 94 H 14 177/77 99 03/05/19 16:48 98 H 15 153/86 100 03/05/19 16:43 97.3 F 89 16 177/79 100 03/05/19 11:00 98.4 F 72 18 176/79 99 Intake and Output 03/05/19 03/06/19 03/06/19 21:59 05:59 13:59 Intake Total 1590 1355 Output Total 75 600 Balance 1515 755 Intake: IV 1350 1015 Lactated Ringers 1,000 ml @ 201 335 3851 mls/hr IV .Q10H NALDO Rx#: [id number] Vancomycin 1,500 mg In Sodium 500 Chloride 0.9% 500 ml @ 333.3 mls/hr IV PREOP NALDO Rx#: [id number] Ancef 2 gm In Dextrose 5% in 50 Water 50 ml @ 100 mls/hr IV PREOP NALDO Rx#:[id number] Oral 240 340 Output: Void Amount 600 Estimated Blood Loss 75 Other: Meal Dinner Percent of Meal Consumed 100% Urine Appearance Clear Urine Color Bright Yellow Urine Odor Normal # Voids 1 Weight 256 lb 8 oz Intake & Output: Intake & Output 03/05/19 03/06/19 03/06/19 21:59 05:59 13:59 Intake Total 1590 1355 Output Total 75 600 Balance 1515 755 Weight 256 lb 8 oz Intake: IV 1350 1015 Lactated Ringers 1,000 ml @ 561 066 7843 mls/hr IV .Q10H NALDO Rx#: [id number] Vancomycin 1,500 mg In Sodium 500 Chloride 0.9% 500 ml @ 333.3 mls/hr IV PREOP NALDO Rx#: [id number] Ancef 2 gm In Dextrose 5% in 50 Water 50 ml @ 100 mls/hr IV PREOP NALDO Rx#:[id number] Oral 240 340 Output: Void Amount 600 Estimated Blood Loss 75 Other: Meal Dinner Percent of Meal Consumed 100% Urine Appearance Clear Urine Color Bright Yellow Urine Odor Normal # Voids 1 Incision: Yes healing Incision clean and dry: Yes Dressing: Yes clean Weight bearing status: full Neurological exam IM: Yes motor sensory intact, Yes neurovascular intact Extremities exam IM: Yes neurovascular intact - Labs CBC & BMP: 03/01/19 13:50 03/01/19 13:50 Labs: Orthopedic Labs 03/01/19 13:50 PT 13.0 INR 1.0 APTT 31 03/01/19 13:50 Hgb 13.6 Hct 41.5 Assessment and Plan (1) History of reverse total replacement of right shoulder joint The patient has been educated regarding dressing care, Physical Therapy recommendations, home exercises, restrictions, and follow up appointments. The patient has had all necessary DME prescribed. The patient has remained relatively stable during their hospital course. Leave Dermabond patch intact until followup Status: Acute
--- NOTE | 2019-03-06 07:42 | Discharge Summary ---
Ortho Discharge - TSA - Patient Instructions Diet: Regular Diet Activity: activity as tolerated, weight bearing as tolerated Total Shoulder Protocol: Leave immobilizer in place except for bathing and ROM. Abduction pillow. Continue to wear sling until seen by physician. Codman Pendulum : These exercises use momentum produced by your body to move your shoulder joint. Bend your knees and shift your weight to your front leg, then back, allowing your arm to swing in the same directions. Using the same technique, alternately shift your weight between your right and left legs, allowing your arm to swing from side to side. These exercises are also performed in counterclockwise and clockwise circular motions. Typically these exercises are performed several times per day, for a set number repetitions or minutes, such as 20 times in a row or 5 minutes at a time. Dressing Care: May shower in 2 days - Problem Maintenance (1) History of reverse total replacement of right shoulder joint Status: Acute - Follow Up Plan Follow Up Appointments: Dm Kendall PA-C [Physician [facility]e [facility]er] - 03/20/19 11:20 am Disposition: Home, Self-Care Prognosis: Good Rehab Potential: Good I certify that the patient requires SNF services: No Overall status at discharge: patient is progressing back to baseline - Orders For Discharge Prescriptions: Docusate Sodium [Colace] 300 mg PO HS #60 cap Transmission Status: Pending to [facility], [facility]. Hydrocodone/APAP 7.5/325Mg [Partridge 7.5-325Mg] 1 - 2 tab PO Q4HP PRN #75 tab PRN Reason: Pain Level 3-6 Prescription Printed
[2019-03-06] MEDS ORDERED: BUMETANIDE 1 MG TABLET PO SCH (09:00)
[2019-03-06] MEDS ORDERED: ASPIRIN 325 MG ENTERIC COATED TABLET PO SCH (09:00)
== END 2019-03-06 13:05 | disposition home or self-care (01) | DRG 483 ==
LOC: MEDSUR 10:54
PROVIDERS: ADMIT Orthopaedic Surgery; ATTEND Orthopaedic Surgery